=== PATIENT | female | born 1985 | race Hispanic/Latino ===

== ENCOUNTER 2018-02-03 15:59 | Emergency (ER) | payer OTHER ==
[~2018-02-03] VITALS: Ht 165.1 cm; Wt 142.9 kg
[~2018-02-03 15:59] MED LIST: ALLEGRA-D 12 HO1 TE1 PO; AUGMENTIN 875 M1 TAB PO; MOTRIN800 MG PO
[2018-02-03 16:30] LABS: ABSOLUTE BASOPHIL COUNT 0.1 /CUMM (0.0-0.2); ABSOLUTE EOSINOPHIL COUNT 0.4 /CUMM (0.0-0.7); ABSOLUTE GRANULOCYTE CT 8.4 /CUMM (1.4-6.5); ABSOLUTE LYMPH COUNT 4.7 /CUMM (1.2-3.4); ABSOLUTE MONOCYTE COUNT 0.7 /CUMM (0.10-0.60); GRANULOCYTE % 58.5 % (42.2-75.2); HEMATOCRIT 36.8 % (37-47); MEAN CORPUSCULAR HGB 25.6 PG (27.0-31.0); MEAN CORPUSCULAR HGB CONC 32.5 G/DL (33.0-37.0); MEAN PLATELET VOLUME 8.6 FL (7.4-10.4); PLATELET COUNT 391 /CUMM (130-400); RBC DISTRIBUTION WIDTH 17.4 % (11.5-14.5); RED BLOOD CELL CT 4.66 /CUMM (4.20-5.40); WHITE BLOOD CELL COUNT 14.4 /CUMM (4.8-10.8)
--- NOTE | 2018-02-03 16:42 | ED GENERAL ADULT ---
History of Present Illness General Chief Complaint: Chest Pain Stated Complaint: CP/SOB Source: patient Exam Limitations: no limitations Vital Signs & Intake/Output Vital Signs & Intake/Output Vital Signs Date Time Temp Pulse Resp B/P B/P Pulse O2 O2 Flow FiO2 Mean Ox Delivery Rate 02/03 1908 98.4 73 16 136/78 97 Room Air 02/03 1707 Room Air 02/03 1609 98.4 80 16 127/81 96 Room Air Allergies Coded Allergies: MDX - Nka - No Known Allergies (NKA - NO KNOWN ALLERGIES) (02/11/12) Reconcile Medications AMOXICILLIN/POTASSIUM CLAV (Augmentin 875-125 Tablet) 875 MG/125 MG TAB 1 TAB PO BID INFECTION (Reported) Fexofenadine HCl/Pse HCl (Giselle-D 12 Hour Allergy & Congestion 60 MG-) [address] 1 TAB PO ALLERGIES (Reported) Ibuprofen (Motrin) 800 MG TAB 1 TAB PO TID PRN PAIN Triage Note: 32 YEAR OLD FEMALE STATES THAT SHE HAD HER GALL BLADDER REMOVED 01/29 AT [facility] AND ABOUT 60 MINUTES AGO SHE HAD THE SUDDEN ONSET OF MID EPIGASTRIC PAIN SHARP/STABBING , DENIES VOMITTING PAIN HAS BEEN CONSTANT. LBM YESTERDAY AND NORMAL FOR HER. WHILE PT SITTING IN TRIAGE PAIN HAS DECREASED AND SHE FEELS BETTER. Triage Nurses Notes Reviewed? yes Onset: Abrupt Duration: minute(s): Timing: resolved : No Patient currently breastfeeds: No HPI: 32 y/o female with h/o cholecystitis, 5 days postop from laparoscopic cholecystectomy at [place] with Dr. Zackary Alba, presenting status post an episode of abdominal pain just prior to arrival. Patient had sudden onset of right upper quadrant pain that radiated across her upper abdomen and left upper quadrant. Patient took 5 mg of oxycodone which she was given for postoperative pain, had resolution of the pain approximately 20-30 minutes after taking the oxycodone. Arrives to the emergency department asymptomatic and pain-free. Denies any fevers, nausea, vomiting, diarrhea, constipation, melena, bloody stools, dysuria. Patient has been doing well since her surgery, is tolerating both liquid and solid po intake. (Keisha KAY,Destiny) Past History Travel History Traveled to [place] past 21 day No Medical History Any Pertinent Medical History? see below for history Neurological: NONE EENT: NONE Cardiovascular: NONE Respiratory: NONE Gastrointestinal: NONE Hepatic: NONE Renal: NONE Musculoskeletal: NONE Psychiatric: NONE Endocrine: NONE Blood Disorders: NONE Tetanus Vaccine: 02/14/12 Surgical History Surgical History: cholecystectomy Psychosocial History Who do you live with Mother What is your primary language Jordanian Tobacco Use: Never used ETOH Use: denies use Illicit Drug Use: denies illicit drug use Family History Hx Contributory? No (Destiny Stephens) Review of Systems Review of Systems Constitutional: Reports: no symptoms. EENTM: Reports: no symptoms. Respiratory: Reports: no symptoms. Cardiovascular: Reports: no symptoms. GI: Reports: see HPI. Genitourinary: Reports: no symptoms. Musculoskeletal: Reports: no symptoms. Skin: Reports: no symptoms. Neurological/Psychological: Reports: no symptoms. Hematologic/Endocrine: Reports: no symptoms. Immunologic/Allergic: Reports: no symptoms. All Other Systems: Reviewed and Negative (Destiny Stephens) Physical Exam Physical Exam General Appearance: well developed/nourished, no apparent distress, alert, awake , comfortable Head: atraumatic, normal appearance Eyes: Bilateral: normal appearance. Neck: normal inspection Respiratory: normal breath sounds, lungs clear Cardiovascular: regular rate/rhythm Gastrointestinal: soft, tenderness (mild TTP in RUQ), no rebound or guarding, 4 laparoscopic surgical sites are visualized and appear to be healing well, no purulent drainage, no wound separation, no overlying erythema Back: normal inspection Extremities: normal inspection Neurologic/Psych: awake, alert, oriented x 3, normal gait, normal mood/affect Skin: intact, normal color, warm/dry Core Measures ACS in differential dx? No CVA/TIA Diagnosis: No Sepsis Present: No Sepsis Focused Exam Completed? No (Destiny Stephens) Progress Differential Diagnoses I considered the following diagnoses in my evaluation of the patient: [ Postoperative pain versus biliary versus pancreatitis versus gastritis versus peptic ulcer versus perforated viscus versus pneumoperitoneum] Plan of Care: Orders Procedure Date/time Status Add-on Test (ER Only) 02/03 1711 Active Add-on Test (ER Only) 02/03 1643 Active LIPASE 02/03 1617 Complete HUMAN BETA HCG SCREEN 02/03 1617 Complete TROPONIN LEVEL 02/03 1601 Complete COMPREHENSIVE METABOLIC PANEL 02/03 1601 Complete CBC WITHOUT DIFFERENTIAL 02/03 1601 Complete EKG 02/03 1600 Active Laboratory Tests 02/03/18 1617: Anion Gap 12, Estimated GFR > 60, BUN/Creatinine Ratio 15.0, Glucose 95, Calcium 9.4, Total Bilirubin 0.8, AST 47 H, ALT 84 H, Alkaline Phosphatase 117, Troponin I < 0.01, Total Protein 7.4, Albumin 4.0, Globulin 3.4, Albumin/ Globulin Ratio 1.2, Lipase 60, Total Beta HCG NEGATIVE, CBC w Diff NO MAN DIFF REQ, RBC 4.66, MCV 79.0 L, MCH 25.6 L, MCHC 32.5 L, RDW 17.4 H, MPV 8.6, Gran % 58.5, Lymphocytes % 32.9, Monocytes % 4.6, Eosinophils % 3.0, Basophils % 1.0, Absolute Granulocytes 8.4 H, Absolute Lymphocytes 4.7 H, Absolute Monocytes 0.7 H, Absolute Eosinophils 0.4, Absolute Basophils 0.1 02/03/18 1601: Urine Test Cancelled Labs unremarkable Upright chest x-ray showed no signs of pneumoperitoneum Patient has remained pain-free and well-appearing with no signs of distress Patient requesting to be discharged home Discussed with Dr. Zackary Alba at [place] and patient is cleared for discharge, will follow up as scheduled for her next postop visit, instructed to continue using oxycodone as needed for postop pain, given strict return precautions Initial ED EKG: none (Destiny Stephens) Departure Departure Disposition: HOME OR SELF CARE Condition: Stable Clinical Impression Primary Impression: Abdominal pain Secondary Impressions: Post-operative pain Referrals: Patient Has No Primary Care Dr (PCP/Family) Additional Instructions: Continue using Percocet as needed for postoperative pain. Follow-up with Dr. Zackary Alba for reevaluation. Return to the emergency department for any new or worsening symptoms. Departure Forms: Customer Survey General Discharge Information (Destiny Stephens) PA/[employer] Co-Sign Statement Statement: ED Attending supervision documentation- [] I saw and evaluated the patient. I have also reviewed all the pertinent lab results and diagnostic results. I agree with the findings and the plan of care as documented in the PA's/[employer]'s documentation. [x] I have reviewed the ED Record and agree with the PA's/[employer]'s documentation. [] Additions or exceptions (if any) to the PAs/[employer]'s note and plan are summarized below: [] (Jonny DESAI,Rome Valadez) Critical Care Note Critical Care Note Critical Care Time: non-applicable (Keisha KAY,Destiny)
--- NOTE | 2018-02-03 18:13 | RADIOLOGY REPORT ---
EXAMINATION: XR CHEST CLINICAL INFORMATION: Free air. Patient is 5 days postop from laparoscopic cholecystectomy. Viscus perforation. COMPARISON: CTA chest 05/14/2012 TECHNIQUE: 2 views of the chest were obtained. FINDINGS: Lung volumes are low. There is mild bibasilar atelectasis. No focal consolidation or mass. No pleural effusion or pneumothorax. Cardiomediastinal silhouette is within normal limits given the low lung volumes. No pneumoperitoneum seen. IMPRESSION: Low lung volumes. No pneumoperitoneum.
[2018-02-03 19:08] VITALS: BP 136/78
== END 2018-02-03 19:45 ==
LOC: ERH 15:59
PROVIDERS: Physician Assistant Medical
DX: R10.11 Right upper quadrant pain (principal); G89.18 Other acute postprocedural pain
CPT/HCPCS: 71046; 81025; 93005; 93010